=== PATIENT | male | born 1965 | race Asian ===

== ENCOUNTER 2024-12-16 16:48 | Emergency (ER) | payer BC, OTHER ==
[~2024-12-16] VITALS: Ht 165.1 cm; Wt 70.5 kg
[2024-12-16] MEDS ORDERED: AMLO5TAB66 PO (16:55)
[2024-12-16] MEDS ORDERED: LISI-663 PO (16:55)
[2024-12-16 18:30] VITALS: BP 124/87; PULSE 86; RESP 18; TEMP 98.2; O2SAT 98
[2024-12-16] MEDS ORDERED: COLC-3 PO (18:36)
[2024-12-16] MEDS ORDERED: ACET-3385 PO (18:36)
== END 2024-12-16 19:13 | disposition home or self-care (01) ==
LOC: EMS 16:55
DX: M10.9 Gout, unspecified (principal); I10 Essential (primary) hypertension; Z79.899 Other long term (current) drug therapy
CPT/HCPCS: 99283; Z7502